=== PATIENT | female | born 1980 | race Caucasian/White ===

== ENCOUNTER 2023-10-20 04:21 | Day surgery (SDC) | payer OTHER ==
[2023-10-19 17:24] VITALS: BMI 26.4
[2023-10-20] MEDS ORDERED: ONDANSETRON 4 MG/2 ML VIAL IVPUSH PRN (12:22)
[2023-10-20] MEDS ORDERED: oxyCODONE HCL 5 MG TABLET PO PRN (12:22)
[2023-10-20] MEDS ORDERED: LACTATED RINGERS SOLUTION 1,000 ML IV SCH (12:30)
[2023-10-20] MEDS ORDERED: SUCCINYLCHOLINE CHLORIDE 200 MG/10 ML SYRINGE ONE (12:34)
[2023-10-20] MEDS ORDERED: KETOROLAC TROMETHAMINE 30 MG/1 ML VIAL ONE (12:34)
[2023-10-20] MEDS ORDERED: ONDANSETRON 4 MG/2 ML VIAL ONE (12:34)
[2023-10-20] MEDS ORDERED: FENTANYL CITRATE/PF 50 MCG/ML VIAL ONE ×2 (12:34→14:47)
[2023-10-20] MEDS ORDERED: MIDAZOLAM HCL 2 MG/2 ML SINGLE DOSE VIAL ONE (12:34)
[2023-10-20] MEDS ORDERED: DEXAMETHASONE SOD PHOSPHATE 4 MG/1 ML VIAL ONE (12:34)
[2023-10-20] MEDS: ceFAZolin SODIUM 1 GM VIAL IVPB ONE (13:40)
[2023-10-20] MEDS ORDERED: ceFAZolin SODIUM 1 GM VIAL ONE (13:41)
[2023-10-20 16:40] VITALS: RESP 18; TEMP 97.5
[2023-10-20 18:05] VITALS: BP 121/73; PULSE 60
== END 2023-10-20 17:55 | disposition home or self-care (01) ==
LOC: JASU-SURG 04:21
PROVIDERS: ATTEND Obstetrics & Gynecology
PROC: 0UDB8ZX Extraction of Endometrium, Via Natural or Artificial Opening Endoscopic, Diagnostic (ICD-10-PCS; principal; 2023-10-20 13:00)
DX: N84.0 Polyp of corpus uteri (principal)
CPT/HCPCS: 81025; 88305-TC; 94760